=== PATIENT | female | born 1960 ===

== ENCOUNTER 2016-12-28 15:17 | Emergency (ER) | payer OTHER ==
--- NOTE | 2016-12-28 15:51 | ED PDOC ---
HPI: Back Time Seen by Provider: 12/28/16 15:48 Chief Complaint (Provider): Back pain History Per: Patient History/Exam Limitations: no limitations Onset/Duration Of Symptoms: Days (x 1 week) Current Symptoms Are (Timing): Still Present Additional Complaint(s): Cecilia is a 56 y/o female who presents to the ED complaining of right-sided back pain, ongoing for 1 week. States she was seen at [facility] [place] for the back pain and prescribed oxycodone, ibuprofen, and a muscle relaxer, without relief. When she applies pressure to her right shoulder, the pain goes away. Also states that the pain improves with a hot shower, but worsens with cold temperatures. She last took Ibuprofen at 7AM today. Patient was told she has a pinched nerve and compression in the neck based on X-Ray results. Today, she developed a headache, which is described as normal. PMD: Dr. Paris Past Medical History Reviewed: Historical Data, Nursing Documentation, Vital Signs - Medical History PMH: Arthritis, Asthma, Malignancy (lung cancer) - Surgical History Surgical History: No Surg Hx - Family History Family History: States: Unknown Family Hx - Social History Current smoker - smoking cessation education provided: No Alcohol: Social Drugs: Denies - Home Medications Home Medications: Ambulatory Orders Medication Instructions Recorded oxyCODONE/Acetaminophen [Percocet 1 ea PO Q6H PRN #15 tab 12/28/16 5/325 mg Tab] - Allergies Allergies/Adverse Reactions: Allergies Allergy/AdvReac Type Severity Reaction Status Date / Time shrimp Allergy ANAPHYLAXIS Verified 12/28/16 15:49 seafood Allergy ANAPHYLAXIS Uncoded 12/28/16 15:49 Review of Systems ROS Statement: Except As Marked, All Systems Reviewed And Found Negative Musculoskeletal: Positive for: Back Pain Neurological: Positive for: Headache Physical Exam - Reviewed Nursing Documentation Reviewed: Yes Vital Signs Reviewed: Yes - Physical Exam Appears: Positive for: Non-toxic, No Acute Distress Head Exam: Positive for: ATRAUMATIC, NORMAL INSPECTION, NORMOCEPHALIC Skin: Positive for: Normal Color, Warm, Dry Eye Exam: Positive for: EOMI, Normal appearance, PERRL Neck: Positive for: Normal Gastrointestinal/Abdominal: Positive for: Normal Exam, Soft. Negative for: Tenderness Neurologic/Psych: Positive for: Alert, Oriented Medical Decision Making Medical Decision Making: Time: 17:05 Initial Plan: --Percocet 1 tab PO --Toradol 30 mg IM Time: 17:52 --Patient reports improvement in symptoms Clinical Impression: Back pain Upon provider reevaluation patient is feeling better, medically stable, and requires no further treatment in the ED at this time. Patient will be discharged home. Counseling was provided and all questions were answered regarding diagnosis and need for follow up with PMD. There is agreement to discharge plan. Return if symptoms persist or worsen. Scribe Attestation: Documented by Carlita Lerma, acting as a scribe for Mel Shah PA-C Provider Scribe Attestation: All medical record entries made by the Scribe were at my direction and personally dictated by me. I have reviewed the chart and agree that the record accurately reflects my personal performance of the history, physical exam, medical decision making, and the department course for this patient. I have also personally directed, reviewed, and agree with the discharge instructions and disposition. Disposition - Clinical Impression Clinical Impression: Chronic back pain - Patient ED Disposition Is Patient to be Admitted: No Counseled Patient/Family Regarding: Diagnosis, Need For Followup, Rx Given - Disposition Referrals: Mika Lima III, MD [Staff Provider] - Disposition: Routine/Home Disposition Time: 18:05 Condition: GOOD Prescriptions: oxyCODONE/Acetaminophen [Percocet 5/325 mg Tab] 1 ea PO Q6H PRN #15 tab PRN Reason: Pain, Severe (8-10) Instructions: Back Pain (ED) Print Language: MALAYSIAN
[2016-12-28 15:57] VITALS: BP 128/68; RESP 18; TEMP 98.8; O2SAT 100
[2016-12-28] MEDS ORDERED: Oxycodone/Acetaminophen 5/325 mg Tab PO STA (17:05)
[2016-12-28] MEDS ORDERED: Oxycodone/Acetaminophen 5/325 mg Tab ONE (17:09)
[2016-12-28 18:16] VITALS: PULSE 78
== END 2016-12-28 18:16 | disposition home or self-care (01) ==
LOC: H.ER 15:17
DX: M54.9 Dorsalgia, unspecified (principal)
CPT/HCPCS: 96372; 99282; J1885

== ENCOUNTER 2016-12-30 00:30 | Inpatient (IN) | payer OTHER ==
[2016-12-30] MEDS ORDERED: Sodium Chloride 0.9% 1,000 ML IV STA ×2 (01:22→03:40)
[2016-12-30 01:50] LABS: BASO % 0.3 % (0.0-2.0); EOS # 0.1 K/uL (0.0-0.7); EOS % 1.8 % (0.0-4.0); HEMATOCRIT 35.3 % (34.0-47.0); LYMPH # 1.2 K/uL (1.0-4.3); LYMPH % 16.4 % (20.0-40.0); MEAN CELL VOLUME 89.4 fl (81.0-99.0); MEAN CORPUSCULAR HEMOGLOBIN 30.3 pg (27.0-31.0); MEAN CORPUSCULAR HGB CONC 33.8 g/dL (33.0-37.0); MEAN PLATELET VOLUME 7.7 fl (7.2-11.7); MONO # 0.6 K/uL (0.0-0.8); MONO % 8.7 % (0.0-10.0); NEUT # 5.4 K/uL (1.8-7.0); NEUT % 72.8 % (50.0-75.0); NRBC % 0.1 % (0.0-0.0); RED CELL DISTRIBUTION WIDTH 13.5 % (11.5-14.5); WHITE BLOOD COUNT 7.4 K/uL (4.8-10.8)
--- NOTE | 2016-12-30 01:51 | ED PDOC ---
HPI: Back Time Seen by Provider: 12/30/16 00:59 Chief Complaint (Nursing): Lower Extremity Problem/Injury Chief Complaint (Provider): Back Pain History Per: Patient History/Exam Limitations: no limitations Onset/Duration Of Symptoms: Days (1x month) Current Symptoms Are (Timing): Still Present Severity: Moderate Associated Symptoms: None Additional Complaint(s): 56 year old female with a pertinent medical history of lung cancer presents to the ED with complaints of lower back pain that radiates to both legs that started 1x month ago. She reports that she was initially evaluated at 1x month ago, and this ED 1x day ago for the same complaints. 1x day ago she was discharged with an Rx for percocet which she has been taking with no relief. She reports having abdominal pain today, but denies having nausea, vomiting, and diarrhea. Patient is unaware that she has a fever, but her vitals demonstrate that she is febrile. PMD: Cecilia Alarcon MD. Past Medical History Reviewed: Historical Data, Nursing Documentation, Vital Signs Vital Signs: Last Vital Signs Temp 101.2 F H 12/30/16 00:51 Pulse 120 H 12/30/16 00:51 Resp 20 12/30/16 00:51 BP 106/73 12/30/16 00:51 Pulse Ox 100 12/30/16 00:51 - Medical History PMH: Arthritis, Asthma, Malignancy (lung cancer) - Surgical History Surgical History: No Surg Hx - Family History Family History: States: Unknown Family Hx - Social History Current smoker - smoking cessation education provided: No Alcohol: None Drugs: Denies - Home Medications Home Medications: Ambulatory Orders Medication Instructions Recorded oxyCODONE/Acetaminophen [Percocet 1 ea PO Q6H PRN #15 tab 12/28/16 5/325 mg Tab] Fluticasone/Vilanterol [Breo 1 inh INH PRN PRN 12/30/16 Ellipta 100-25 Mcg INH] Ibuprofen [Motrin Tab] 600 mg PO PRN PRN 12/30/16 - Allergies Allergies/Adverse Reactions: Allergies Allergy/AdvReac Type Severity Reaction Status Date / Time shrimp Allergy ANAPHYLAXIS Verified 12/28/16 15:49 seafood Allergy ANAPHYLAXIS Uncoded 12/28/16 15:49 Review of Systems ROS Statement: Except As Marked, All Systems Reviewed And Found Negative Constitutional: Positive for: Fever Gastrointestinal: Positive for: Abdominal Pain. Negative for: Nausea, Vomiting , Diarrhea Musculoskeletal: Positive for: Back Pain (lower back pain radiates to both legs) Physical Exam - Reviewed Nursing Documentation Reviewed: Yes Vital Signs Reviewed: Yes - Physical Exam Appears: Positive for: Well, Non-toxic, No Acute Distress Head Exam: Positive for: ATRAUMATIC, NORMOCEPHALIC Skin: Positive for: Normal Color, Warm, Dry Neck: Positive for: Normal Cardiovascular/Chest: Positive for: Regular Rate, Rhythm Respiratory: Positive for: Normal Breath Sounds. Negative for: Respiratory Distress Gastrointestinal/Abdominal: Positive for: Normal Exam, Soft. Negative for: Tenderness Extremity: Positive for: Tenderness (leg raise test: tenderness to both legs at 30 degrees. Left leg is greater than right leg in terms of pain.) Neurologic/Psych: Positive for: Alert, Oriented (3x) - Laboratory Results Result Diagrams: 12/30/16 01:40 12/30/16 01:40 - ECG O2 Sat by Pulse Oximetry: 100 (RA) Pulse Ox Interpretation: Normal - Radiology X-Ray: Interpreted by Me, Viewed By Me X-Ray Interpretation: Other (haziness at bases of lungs bilaterally) - CT Scan/US CT lumbar spine w/o contrast Other Rad Studies (CT/US): Read By Radiologist, Radiology Report Reviewed (see MDM for findings) Medical Decision Making Medical Decision Makin:59 Initial impression: 56 year old female with back pain insetting of febrile illness. Initial plan: * CT lumbar spine w/o contrast * EKG * labs * trial IV toradol 10mg * fluids * tylenol 975mg PO * reevaluation 3:01 CT lumbar spine read and reviewed by radiologist FINDINGS: Degenerative changes with joint space narrowing and irregularity L5-S1. The vertebral bodies are well aligned. The vertebral body height is well maintained. No fractures. There is a conglomerate of ill-defined heterogeneous lytic lesions in the left iliac bone extending to the sacroiliac joint and into the sacrum. There are no sclerotic borders. The appearance is concerning for aggressive process such as neoplasm or infectious/inflammatory process. Further evaluation with bone scan may be helpful for further evaluation. There is no soft tissue component identified. No significant disc disease identified. Lytic process involving both sides of the left sacroiliac joint more notably throughout the iliac bone with an appearance concerning for aggressive process such as infection, inflammation, or neoplasm 3:30 Labs show no clinically significant abnormalities. Patient reports that she still has back pain. CT findings show that the patient has a sporadic sacral metastasis. Given patient's past medical history of lung cancer, patient will be admitted for further workup and evaluation of back pain and sacral iliactal metastasis. Discussed with : medicine on-call. 4:05 Chest XRay shows haziness at the bases of lungs bilaterally. It is unclear to the provider if it is due to patient's previous history of lung cancer. Provider will treat possible underlying pneumonia with Levaquin. Scribe Attestation: Documented by Gita Wolfe, acting as a scribe for Caesar Reynoso MD. Provider Scribe Attestation: All medical record entries made by the Scribe were at my direction and personally dictated by me. I have reviewed the chart and agree that the record accurately reflects my personal performance of the history, physical exam, medical decision making, and the department course for this patient. I have also personally directed, reviewed, and agree with the discharge instructions and disposition. Disposition - Clinical Impression Clinical Impression: Back pain, Metastasis, Febrile illness - Patient ED Disposition Is Patient to be Admitted: Yes Discussed With : Sharan Martinez - Disposition Disposition Time: 03:30 Condition: STABLE - Pt Status Changed To: Hospital Disposition Of: Inpatient - Admit Certification Admit to Inpatient:: After my assessment, the patient will require hospitalization for at least two midnights. This is because of the severity of symptoms shown, intensity of services needed, and/or the medical risk in this patient being treated as an outpatient.
[2016-12-30 02:03] LABS: RBC URINE 5 /hpf (0-3); URINE BACTERIA FEW (<OCC); URINE BILIRUBIN NEGATIVE (NEGATIVE); URINE BLOOD SMALL (NEGATIVE); URINE COLOR YELLOW (YELLOW); URINE GLUCOSE (UA) NEG (Normal); URINE KETONE TRACE mg/dL (NEGATIVE); URINE LEUKOCYTE ESTERASE NEG Leu/uL (Negative); URINE PROTEIN NEGATIVE (NEGATIVE); URINE UROBILINOGEN 0.2-1.0 mg/dL (0.2-1.0); WBC URINE 2 /hpf (0-5)
[2016-12-30 02:06] LABS: ALKALINE PHOSPHATASE 124 U/L (38-126); ALT/SGPT 41 U/L (9-52); AST/SGOT 118 U/L (14-36); BILIRUBIN,TOTAL 0.7 mg/dl (0.2-1.3); BLOOD UREA NITROGEN 10 mg/dl (7-17); CALCIUM 9.7 mg/dL (8.4-10.2); CARBON DIOXIDE 30 mmol/L (22-30); CHLORIDE 102 mmol/L (98-107); GFR AFRICAN-AMERICAN > 60; GLUCOSE,RANDOM 146 mg/dL (65-105); POTASSIUM 4.3 MMOL/L (3.6-5.0); SODIUM 140 mmol/l (132-148); TOTAL PROTEIN 7.9 G/DL (6.3-8.2)
--- NOTE | 2016-12-30 03:01 | CT ---
EXAM: CT Lumbar Spine Without Intravenous Contrast EXAM DATE/TIME: 12/30/2016 1:39 AM CLINICAL HISTORY: 56 years old, female; Pain; Low back pain; Additional info: Intractable back pain TECHNIQUE: Axial computed tomography images of the lumbar spine without intravenous contrast. All CT scans at this facility use one or more dose reduction techniques, viz.: automated exposure control; ma/kV adjustment per patient size (including targeted exams where dose is matched to indication; i.e. head); or iterative reconstruction technique. Coronal and sagittal reformatted images were created and reviewed. COMPARISON: No relevant prior studies available. FINDINGS: Degenerative changes with joint space narrowing and irregularity L5-S1. The vertebral bodies are well aligned. The vertebral body height is well maintained. No fractures. There is a conglomerate of ill-defined heterogeneous lytic lesions in the left iliac bone extending to the sacroiliac joint and into the sacrum. There are no sclerotic borders. The appearance is concerning for aggressive process such as neoplasm or infectious/inflammatory process. Further evaluation with bone scan may be helpful for further evaluation. There is no soft tissue component identified. No significant disc disease identified. IMPRESSION: Lytic process involving both sides of the left sacroiliac joint more notably throughout the iliac bone with an appearance concerning for aggressive process such as infection, inflammation, or neoplasm.
[2016-12-30] MEDS ORDERED: levoFLOXacin 500 mg in D5W 500 MG/100 ML BAG IVPB STA (04:10)
[2016-12-30] MEDS ORDERED: levoFLOXacin 500 mg in D5W 500 MG/100 ML BAG IVPB ONE (04:13)
[2016-12-30] MEDS ORDERED: Albuterol-Ipratrop 3 mg / 0.5 (3 ml) UD INH PRN (06:56)
--- NOTE | 2016-12-30 08:26 | CP.PCM.HP ---
History of Present Illness - History of Present Illness History of Present Illness: CC: Lower Back Pain History Of Present Illness: A 56 year old female with a pertinent medical history of lung cancer presents to the ED with complaints of lower back pain that radiates to both legs that started 1x month ago. She reports that she was initially evaluated at [facility] 1x month ago, and this ED 1x day ago for the same complaints. 1x day ago she was discharged with an Rx for percocet which she has been taking with no relief. She reports having abdominal pain today, but denies having nausea, vomiting, and diarrhea. Patient is unaware that she has a fever, but her vitals demonstrate that she is febrile.T max >102 , and Tachycardia 110-120. Present on Admission - Present on Admission Any Indicators Present on Admission: No Review of Systems - Review of Systems All systems: reviewed and no additional remarkable complaints except Past Patient History - Past Medical History & Family History Past Medical History?: Yes Past Family History: Reviewed and not pertinent - Past Social History Smoking Status: Never Smoked Alcohol: None Drugs: Denies - CARDIAC Hx Cardiac Disorders: No - PULMONARY Hx Asthma: Yes - NEUROLOGICAL Hx Neurological Disorder: No - HEENT Hx HEENT Problems: No - RENAL Hx Chronic Kidney Disease: No - ENDOCRINE/METABOLIC Hx Endocrine Disorders: No - HEMATOLOGICAL/ONCOLOGICAL Hx Chemotherapy: Yes (started Feb - May.) - INTEGUMENTARY Hx Dermatological Problems: No - MUSCULOSKELETAL/RHEUMATOLOGICAL Hx Arthritis: Yes - GASTROINTESTINAL Hx Gastrointestinal Disorders: No - GENITOURINARY/GYNECOLOGICAL Hx Genitourinary Disorders: No - PSYCHIATRIC Hx Psychophysiologic Disorder: No Hx Substance Use: No - SURGICAL HISTORY Hx Surgeries: Yes Hx Cholecystectomy: Yes (about 14 yrs. ago) Hx Hysterectomy: Yes (about 5 yrs. ago) Other/Comment: Breast Reduction - 17 yrs. ago - ANESTHESIA Hx Anesthesia: Yes Hx Anesthesia Reactions: No Hx Malignant Hyperthermia: No Has any member of the family had a problem w/ anesthesia?: No Meds Allergies/Adverse Reactions: Allergies Allergy/AdvReac Type Severity Reaction Status Date / Time shrimp Allergy ANAPHYLAXIS Verified 12/28/16 15:49 seafood Allergy ANAPHYLAXIS Uncoded 12/28/16 15:49 Physical Exam - Constitutional Appears: Well, No Acute Distress - Head Exam Head Exam: ATRAUMATIC, NORMAL INSPECTION, NORMOCEPHALIC - Eye Exam Eye Exam: EOMI, Normal appearance, PERRL Pupil Exam: NORMAL ACCOMODATION, PERRL - ENT Exam ENT Exam: Mucous Membranes Moist, Normal Exam - Neck Exam Neck exam: Positive for: Normal Inspection - Respiratory Exam Respiratory Exam: Clear to Auscultation Bilateral, NORMAL BREATHING PATTERN - Cardiovascular Exam Cardiovascular Exam: REGULAR RHYTHM, +S1, +S2 - GI/Abdominal Exam GI & Abdominal Exam: Normal Bowel Sounds, Soft. absent: Tenderness - Extremities Exam Extremities exam: Positive for: normal inspection - Back Exam Back exam: NORMAL INSPECTION - Neurological Exam Neurological exam: Alert, CN II-XII Intact, Normal Gait, Oriented x3, Reflexes Normal - Psychiatric Exam Psychiatric exam: Normal Affect, Normal Mood - Skin Skin Exam: Dry, Intact, Normal Color, Warm Results - Vital Signs Recent Vital Signs: Last Vital Signs Temp 100.8 F H 12/30/16 04:08 Pulse 115 H 12/30/16 04:08 Resp 18 12/30/16 04:08 BP 108/65 12/30/16 04:08 Pulse Ox 100 12/30/16 06:46 - Labs Result Diagrams: 12/30/16 01:40 12/30/16 01:40 - Imaging and Cardiology Chest x-ray Status: Report reviewed by me Additional comment: IMPRESSION: Linear airspace disease in the right perihilar region could represent atelectasis or pneumonia. Post obstructive pathology cannot be excluded. Follow- up after medical management is recommended to ensure complete resolution. CT L SPine: Status: Report reviewed by me Additional comment: IMPRESSION: Lytic process involving both sides of the left sacroiliac joint more notably throughout the iliac bone with an appearance concerning for aggressive process such as infection, inflammation, or neoplasm. Assessment & Plan (1) Sepsis Assessment and Plan: Source: Lung Vs Sacroiliac Joint Add Vancomycin and Zoyn Tylenol PRN Fever 101 or More ID Consult Will consult Ortho if Septic Arthritis is ruled in. Status: Acute Priority: High (2) Lung cancer Assessment and Plan: ?Metastasis to the Hip Vs Infectious Process Will do MRI left Pelvis Pain medicine PRN Status: Chronic (3) Obesity Status: Acute (4) Back pain Status: Acute
[2016-12-30] MEDS: Sodium Chloride 0.9% 1,000 ML IV SCH ×2 (08:32→17:01)
--- NOTE | 2016-12-30 09:04 | RAD ---
HISTORY: fever COMPARISON: No prior. FINDINGS: LUNGS: There is linear airspace disease in the right perihilar region. The left lung is clear. The lungs are well inflated. PLEURA: No significant pleural effusion identified, no pneumothorax apparent. CARDIOVASCULAR: Normal. OSSEOUS STRUCTURES: No significant abnormalities. VISUALIZED UPPER ABDOMEN: Normal. OTHER FINDINGS: None. IMPRESSION: Linear airspace disease in the right perihilar region could represent atelectasis or pneumonia. Post obstructive pathology cannot be excluded. Follow-up after medical management is recommended to ensure complete resolution.
[2016-12-30] MEDS: Enoxaparin 40 mg Syringe SC SCH (12:27)
[2016-12-30] MEDS: Fluticasone-Salmeterol 250-50mcg Diskus IH SCH ×2 (12:28→21:14)
[2016-12-30] MEDS: levoFLOXacin 500 MG TAB PO SCH (12:28)
[2016-12-30] MEDS ORDERED: Vancomycin 1 g Inj IVPB SCH (21:00)
[2016-12-31] MEDS: Sodium Chloride 0.9% 1,000 ML IV SCH ×2 (03:27→06:43)
[2016-12-31] MEDS ORDERED: cefTRIAXone (Rocephin) 2 gm Inj IVPB SCH (09:00)
[2016-12-31] MEDS: Enoxaparin 40 mg Syringe SC SCH (09:09)
[2016-12-31] MEDS: Fluticasone-Salmeterol 250-50mcg Diskus IH SCH ×2 (09:09→20:29)
[2016-12-31] MEDS: levoFLOXacin 500 MG TAB PO SCH (09:10)
--- NOTE | 2016-12-31 11:03 | CARD ---
APPROVED REPORT EKG Measurement Heart [id number] <Conclusion> Sinus tachycardia Low voltage QRS Borderline ECG
[2016-12-31 14:13] VITALS: BMI 46.8
[2016-12-31] MEDS ORDERED: Gadodiamide 287 MG/ML VIAL (15ML) IV ONE (16:07)
--- NOTE | 2016-12-31 16:52 | CP.PCM.CON ---
History of Present Illness - History of Present Illness History of Present Illness: Oncology Consult Referred by Dr. Martinez for h/o lung cancer HPI-Ms Britt is known to Dr. Lea who is treating her for stage IV lung cancer. She was admitted now with lower back pain radiating to legs and in a band like fashion. She recently went to [facility] with similar complaints and was sent home on pain medications. She was also noted to have fever of 101.2 in hospital. She denies chest pain, shortness of breath, cough or abdominal pain or altered bowel movements. She was initially diagnosed with Stage IIIB lung squamous cell carcinoma around Jan 2016. Initially treated with concurrent chemo RT using weekly Carboplatin and Taxol. Around August of this year, her scans showed progression with bone mets. Her treatment was switched to Opdivo, last dose on 12/26/16. Family and Social history reviewed. Review of Systems - Review of Systems All systems: reviewed and no additional remarkable complaints except (as in HPI) - Constitutional Constitutional: Fatigue Past Patient History - Past Medical History & Family History Past Medical History?: Yes Past Family History: Reviewed and not pertinent - Past Social History Smoking Status: Never Smoked Alcohol: None Drugs: Denies - CARDIAC Hx Cardiac Disorders: No - PULMONARY Hx Asthma: Yes - NEUROLOGICAL Hx Neurological Disorder: No - HEENT Hx HEENT Problems: No - RENAL Hx Chronic Kidney Disease: No - ENDOCRINE/METABOLIC Hx Endocrine Disorders: No - HEMATOLOGICAL/ONCOLOGICAL Hx Chemotherapy: Yes (started Feb - May.) - INTEGUMENTARY Hx Dermatological Problems: No - MUSCULOSKELETAL/RHEUMATOLOGICAL Hx Arthritis: Yes - GASTROINTESTINAL Hx Gastrointestinal Disorders: No - GENITOURINARY/GYNECOLOGICAL Hx Genitourinary Disorders: No - PSYCHIATRIC Hx Psychophysiologic Disorder: No Hx Substance Use: No - SURGICAL HISTORY Hx Surgeries: Yes Hx Cholecystectomy: Yes (about 14 yrs. ago) Hx Hysterectomy: Yes (about 5 yrs. ago) Other/Comment: Breast Reduction - 17 yrs. ago - ANESTHESIA Hx Anesthesia: Yes Hx Anesthesia Reactions: No Hx Malignant Hyperthermia: No Has any member of the family had a problem w/ anesthesia?: No Meds Allergies/Adverse Reactions: Allergies Allergy/AdvReac Type Severity Reaction Status Date / Time shrimp Allergy ANAPHYLAXIS Verified 12/28/16 15:49 seafood Allergy ANAPHYLAXIS Uncoded 12/28/16 15:49 - Medications Medications: Current Medications Acetaminophen (Tylenol 325mg Tab) 650 mg PO Q4 PRN PRN Reason: Pain, Mild (1-3) Last Admin: 12/31/16 06:31 Dose: 650 mg Albuterol/Ipratropium (Duoneb 3 Mg/0.5 Mg (3 Ml) Ud) 3 ml INH RQ6 PRN PRN Reason: Shortness of Breath Docusate Sodium (Colace) 100 mg PO BID [facility] Last Admin: 12/31/16 16:00 Dose: 100 mg Enoxaparin Sodium (Lovenox) 40 mg SC DAILY [facility] PRN Reason: Protocol Last Admin: 12/31/16 09:09 Dose: 40 mg Ceftriaxone Sodium 1 gm/ (Sodium Chloride) 100 mls @ 100 mls/hr IVPB DAILY [facility] Last Admin: 12/31/16 09:04 Dose: 100 mls/hr Vancomycin HCl 1 gm/ Sodium (Chloride) 250 mls @ 125 mls/hr IVPB Q12H [facility] Last Admin: 12/31/16 09:04 Dose: 125 mls/hr Ibuprofen (Motrin Tab) 600 mg PO Q6 PRN PRN Reason: temp >101 Last Admin: 12/31/16 02:29 Dose: 600 mg Lactulose (Enulose) 20 gm PO BID [facility] Last Admin: 12/31/16 16:00 Dose: 20 gm Levofloxacin (Levaquin) 500 mg PO DAILY [facility] Last Admin: 12/31/16 09:10 Dose: 500 mg Morphine Sulfate (Morphine) 1 mg IVP Q4 PRN PRN Reason: Pain, moderate (4-7) Morphine Sulfate (Morphine) 2 mg IVP Q4 PRN PRN Reason: Pain, severe (8-10) Last Admin: 12/31/16 15:13 Dose: 2 mg Ondansetron HCl (Zofran Inj) 4 mg IVP Q6 PRN PRN Reason: Nausea/Vomiting Last Admin: 12/31/16 15:23 Dose: 4 mg Fluticasone/Salmeterol (Advair Diskus 250/50) 1 puff IH Q12 [facility] Last Admin: 12/31/16 09:09 Dose: 1 puff Physical Exam - Head Exam Head Exam: ATRAUMATIC, NORMAL INSPECTION - Eye Exam Eye Exam: EOMI, PERRL - ENT Exam ENT Exam: Mucous Membranes Moist - Neck Exam Neck exam: Negative for: Lymphadenopathy - Respiratory Exam Respiratory Exam: Clear to Auscultation Bilateral - Cardiovascular Exam Cardiovascular Exam: REGULAR RHYTHM - GI/Abdominal Exam GI & Abdominal Exam: Normal Bowel Sounds, Soft. 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 Source of fever is unclear right now - possibly spine or lungs. Will schedule her for MRI L spine to evaluate any epidural involvement (as a cause of pain). Will hold off on starting steroids for now (as she has active fevers) Continue empiric antibiotics. F/U cultures. Labs reviewed, WBC is normal. Continue pain management and other supportive care for now She will continue to follow up with Dr. Lea at discharge. Thank you for the consult Abhishek Buck MD - Date & Time Date: 12/31/16 Time: 16:52
--- NOTE | 2016-12-31 18:03 | MRI ---
PROCEDURE: MR LUMBAR SPINE WITH AND WITHOUT CONTRAST HISTORY: h/o lung cancer, back pain COMPARISON: Comparison is made to the previous CT dated 12/30/2016 TECHNIQUE: Multiecho multiplanar sequences were performed through the lumbar spine with and without the use of intravenous contrast. 26 cc of Omniscan was given intravenously. FINDINGS: Normal lumbar lordosis. There is a straightening of the lumbar spine which could be due to muscle spasm. Mild loss of the L5 height noted could be due to severe degenerative changes at the inferior endplate. Mild diffuse heterogeneous bone marrow signal seen. There is hyperintense T1 and T2 signal at the inferior endplate of L5 suggestive of Modic type 2 degenerative changes. Conus medullaris unremarkable at the level of Paraspinal soft tissues are unremarkable. There is patchy enhancement of the lumbar spine vertebrae noted. There is partial image destructive mass lesion at the posterior aspect of the left sacroiliac joint and iliac bone demonstrates diffuse enhancement highly suspicious for metastasis. T12-L1: No disc herniation, spinal canal stenosis or neural foraminal narrowing. L1-2: No disc herniation, spinal canal stenosis or neural foraminal narrowing. L2-3: No disc herniation, spinal canal stenosis or neural foraminal narrowing. L3-4: No disc herniation, spinal canal stenosis or neural foraminal narrowing. L4-5: There is a moderate size disc herniation/ protrusion associated with posterior ligament and facet joint hypertrophy which resulting in moderate to mildly severe spinal and bilateral neural foraminal narrowing. There is moderate narrowing of the lateral recess bilaterally. L5-S1: Small disc osteophyte complex associated with posterior ligament and facet joint hypertrophy which resulting in mild spinal and neural foraminal narrowing. There is severe narrowing of the intervertebral disc space at this level associated with endplate degenerative changes. OTHER FINDINGS: None. IMPRESSION: Partially imaged enhancing destructive mass lesion at the posterior aspect of left sacroiliac joint and posterior aspect of the left iliac bone highly suspicious for metastasis given the patient's history. Straightening of the lumbar spine. Patchy enhancement of the bone marrow in the lumbar spine without evidence of focal destructive mass lesion. [id number] size disc herniation/ protrusion at L4-L5 associated with posterior ligament and facet joint hypertrophy which resulting in moderate to mildly severe spinal/thecal sac narrowing and [id number] bilateral neural foraminal stenosis. Severe degenerative changes at L5-S1 associated with moderate to severe narrowing of the disc space. Osteophyte disc bulging complex at L5-S1 which resulting in mild spinal and neural foraminal narrowing.
--- NOTE | 2016-12-31 23:11 | CP.PCM.PN ---
Subjective - Date & Time of Evaluation Date of Evaluation: 12/31/16 Time of Evaluation: 08:10 - Subjective Subjective: Spiked fever 102.3 this morning. Still c/o Lower back pain. Denies cough, or urinary symptoms. Objective - Vital Signs/Intake and Output Vital Signs (last 24 hours): Temp Pulse Resp BP Pulse Ox 99.4 F 113 H 18 112/73 100 12/31/16 16:09 12/31/16 16:09 12/31/16 16:09 12/31/16 16:09 12/31/16 16:09 - Medications Medications: Current Medications Acetaminophen (Tylenol 325mg Tab) 650 mg PO Q4 PRN PRN Reason: Pain, Mild (1-3) Last Admin: 12/31/16 06:31 Dose: 650 mg Albuterol/Ipratropium (Duoneb 3 Mg/0.5 Mg (3 Ml) Ud) 3 ml INH RQ6 PRN PRN Reason: Shortness of Breath Docusate Sodium (Colace) 100 mg PO BID [facility] Last Admin: 12/31/16 16:00 Dose: 100 mg Enoxaparin Sodium (Lovenox) 40 mg SC DAILY [facility] PRN Reason: Protocol Last Admin: 12/31/16 09:09 Dose: 40 mg Ceftriaxone Sodium 1 gm/ (Sodium Chloride) 100 mls @ 100 mls/hr IVPB DAILY [facility] Last Admin: 12/31/16 09:04 Dose: 100 mls/hr Vancomycin HCl 1 gm/ Sodium (Chloride) 250 mls @ 125 mls/hr IVPB Q12H [facility] Last Admin: 12/31/16 20:21 Dose: 125 mls/hr Ibuprofen (Motrin Tab) 600 mg PO Q6 PRN PRN Reason: temp >101 Last Admin: 12/31/16 02:29 Dose: 600 mg Lactulose (Enulose) 20 gm PO BID [facility] Last Admin: 12/31/16 16:00 Dose: 20 gm Levofloxacin (Levaquin) 500 mg PO DAILY [facility] Last Admin: 12/31/16 09:10 Dose: 500 mg Morphine Sulfate (Morphine) 1 mg IVP Q4 PRN PRN Reason: Pain, moderate (4-7) Morphine Sulfate (Morphine) 2 mg IVP Q4 PRN PRN Reason: Pain, severe (8-10) Last Admin: 12/31/16 19:46 Dose: 2 mg Ondansetron HCl (Zofran Inj) 4 mg IVP Q6 PRN PRN Reason: Nausea/Vomiting Last Admin: 12/31/16 15:23 Dose: 4 mg Fluticasone/Salmeterol (Advair Diskus 250/50) 1 puff IH Q12 [facility] Last Admin: 12/31/16 20:29 Dose: 1 puff Zolpidem Tartrate (Ambien) 5 mg PO HS PRN PRN Reason: Insomnia Last Admin: 12/31/16 22:07 Dose: 5 mg - Constitutional Appears: Well, No Acute Distress - Head Exam Head Exam: ATRAUMATIC, NORMAL INSPECTION, NORMOCEPHALIC - Eye Exam Eye Exam: EOMI, Normal appearance, PERRL Pupil Exam: NORMAL ACCOMODATION, PERRL - ENT Exam ENT Exam: Mucous Membranes Moist, Normal Exam - Neck Exam Neck Exam: Full ROM, Normal Inspection. absent: Lymphadenopathy - Respiratory Exam Respiratory Exam: Clear to Ausculation Bilateral, NORMAL BREATHING PATTERN - Cardiovascular Exam Cardiovascular Exam: REGULAR RHYTHM, +S1, +S2. absent: Murmur - GI/Abdominal Exam GI & Abdominal Exam: Soft, Normal Bowel Sounds. absent: Tenderness Additional comments: Obese - Extremities Exam Extremities Exam: Full ROM, Normal Capillary Refill, Normal Inspection. absent : Joint Swelling, Pedal Edema - Neurological Exam Neurological Exam: Alert, Awake, CN II-XII Intact, Normal Gait, Oriented x3 - Psychiatric Exam Psychiatric exam: Normal Affect, Normal Mood - Skin Skin Exam: Dry, Intact, Normal Color, Warm Assessment and Plan (1) Sepsis Assessment & Plan: Source: Lung Vs Sacroiliac Joint septic Arthritis Levaquin, Vancomycin and Zoyn Tylenol PRN Fever 101 or More ID Onboard Will consult Ortho if Septic Arthritis is ruled in. Status: Acute Priority: High (2) Lung cancer Assessment and Plan: ?Metastasis to the Hip Vs Infectious Process MRI L spine Pain medicine PRN Status: Chronic (3) Obesity Status: Acute (4) Back pain Status: Acute
[2017-01-01 07:42] LABS: BASO % 0.4 % (0.0-2.0); EOS # 0.1 K/uL (0.0-0.7); EOS % 1.5 % (0.0-4.0); HEMATOCRIT 32.9 % (34.0-47.0); LYMPH # 1.3 K/uL (1.0-4.3); LYMPH % 16.7 % (20.0-40.0); MEAN CELL VOLUME 89.5 fl (81.0-99.0); MEAN CORPUSCULAR HEMOGLOBIN 30.4 pg (27.0-31.0); MEAN CORPUSCULAR HGB CONC 33.9 g/dL (33.0-37.0); MEAN PLATELET VOLUME 7.9 fl (7.2-11.7); MONO # 0.9 K/uL (0.0-0.8); MONO % 11.8 % (0.0-10.0); NEUT # 5.2 K/uL (1.8-7.0); NEUT % 69.6 % (50.0-75.0); NRBC % 0.1 % (0.0-0.0); RED CELL DISTRIBUTION WIDTH 13.9 % (11.5-14.5); WHITE BLOOD COUNT 7.5 K/uL (4.8-10.8)
[2017-01-01 08:08] LABS: BLOOD UREA NITROGEN 5 mg/dl (7-17); CALCIUM 9.9 mg/dL (8.4-10.2); CARBON DIOXIDE 26 mmol/L (22-30); CHLORIDE 102 mmol/L (98-107); GFR AFRICAN-AMERICAN > 60; GLUCOSE,RANDOM 116 mg/dL (65-105); POTASSIUM 3.9 MMOL/L (3.6-5.0); SODIUM 140 mmol/l (132-148)
[2017-01-01] MEDS: Enoxaparin 40 mg Syringe SC SCH (09:40)
[2017-01-01] MEDS: Fluticasone-Salmeterol 250-50mcg Diskus IH SCH ×2 (09:41→20:54)
[2017-01-01] MEDS: levoFLOXacin 500 MG TAB PO SCH (09:41)
--- NOTE | 2017-01-01 11:02 | CP.PCM.PN ---
Subjective - Date & Time of Evaluation Date of Evaluation: 01/01/17 Time of Evaluation: 10:00 - Subjective Subjective: +Fever. Pain has improved. Denies fever or chills. Objective - Vital Signs/Intake and Output Vital Signs (last 24 hours): Temp Pulse Resp BP Pulse Ox 98.8 F 112 H 20 108/71 96 01/01/17 08:27 01/01/17 08:27 01/01/17 08:27 01/01/17 08:27 01/01/17 08:27 - Medications Medications: Current Medications Acetaminophen (Tylenol 325mg Tab) 650 mg PO Q4 PRN PRN Reason: Pain, Mild (1-3) Last Admin: 01/01/17 00:39 Dose: 650 mg Albuterol/Ipratropium (Duoneb 3 Mg/0.5 Mg (3 Ml) Ud) 3 ml INH RQ6 PRN PRN Reason: Shortness of Breath Docusate Sodium (Colace) 100 mg PO BID [facility] Last Admin: 01/01/17 09:39 Dose: 100 mg Enoxaparin Sodium (Lovenox) 40 mg SC DAILY [facility] PRN Reason: Protocol Last Admin: 01/01/17 09:40 Dose: 40 mg Ceftriaxone Sodium 1 gm/ (Sodium Chloride) 100 mls @ 100 mls/hr IVPB DAILY [facility] Last Admin: 01/01/17 09:34 Dose: 100 mls/hr Vancomycin HCl 1 gm/ Sodium (Chloride) 250 mls @ 125 mls/hr IVPB Q12H [facility] Last Admin: 01/01/17 09:16 Dose: 125 mls/hr Ibuprofen (Motrin Tab) 600 mg PO Q6 PRN PRN Reason: temp >101 Last Admin: 12/31/16 02:29 Dose: 600 mg Lactulose (Enulose) 20 gm PO BID [facility] Last Admin: 01/01/17 09:42 Dose: Not Given Levofloxacin (Levaquin) 500 mg PO DAILY [facility] Last Admin: 01/01/17 09:41 Dose: 500 mg Morphine Sulfate (Morphine) 1 mg IVP Q4 PRN PRN Reason: Pain, moderate (4-7) Morphine Sulfate (Morphine) 2 mg IVP Q4 PRN PRN Reason: Pain, severe (8-10) Last Admin: 01/01/17 06:06 Dose: 2 mg Ondansetron HCl (Zofran Inj) 4 mg IVP Q6 PRN PRN Reason: Nausea/Vomiting Last Admin: 12/31/16 15:23 Dose: 4 mg Fluticasone/Salmeterol (Advair Diskus 250/50) 1 puff IH Q12 [facility] Last Admin: 01/01/17 09:41 Dose: 1 puff Zolpidem Tartrate (Ambien) 5 mg PO HS PRN PRN Reason: Insomnia Last Admin: 12/31/16 22:07 Dose: 5 mg - Labs Labs: 01/01/17 07:20 01/01/17 07:20 - Constitutional Appears: Well - Head Exam Head Exam: ATRAUMATIC, NORMAL INSPECTION, NORMOCEPHALIC - Eye Exam Eye Exam: EOMI, Normal appearance, PERRL Pupil Exam: NORMAL ACCOMODATION, PERRL - ENT Exam ENT Exam: Mucous Membranes Moist, Normal Exam - Neck Exam Neck Exam: Full ROM, Normal Inspection. absent: Lymphadenopathy - Respiratory Exam Respiratory Exam: Clear to Ausculation Bilateral, NORMAL BREATHING PATTERN - Cardiovascular Exam Cardiovascular Exam: REGULAR RHYTHM, +S1, +S2. absent: Murmur - GI/Abdominal Exam GI & Abdominal Exam: Soft, Normal Bowel Sounds. absent: Tenderness - Extremities Exam Extremities Exam: Full ROM, Normal Capillary Refill, Normal Inspection. absent : Joint Swelling, Pedal Edema - Back Exam Back Exam: NORMAL INSPECTION - Neurological Exam Neurological Exam: Alert, Awake, CN II-XII Intact, Normal Gait, Oriented x3 - Psychiatric Exam Psychiatric exam: Normal Affect, Normal Mood - Skin Skin Exam: Dry, Intact, Normal Color, Warm - Additional Findings Additional findings: MRI of L- Spine: IMPRESSION : Partially imaged enhancing destructive mass lesion at the posterior aspect of left sacroiliac joint and posterior aspect of the left iliac bone highly suspicious for metastasis given the patient's history. Straightening of the lumbar spine. Patchy enhancement of the bone marrow in the lumbar spine without evidence of focal destructive mass lesion. [id number] size disc herniation/ protrusion at L4-L5 associated with posterior ligament and facet joint hypertrophy which resulting in moderate to mildly severe spinal/thecal sac narrowing and [id number] bilateral neural foraminal stenosis. Severe degenerative changes at L5-S1 associated with moderate to severe narrowing of the disc space. Osteophyte disc bulging complex at L5-S1 which resulting in mild spinal and neural foraminal narrowing. Assessment and Plan (1) Sepsis Assessment & Plan: Source: Lung Vs Sacroiliac Joint septic Arthritis Continue, Levaquin, Vancomycin and Zoyn Tylenol PRN Fever 101 or More ID Onboard Will consult Ortho if Septic Arthritis is ruled in. Status: Acute Priority: High (2) Lung cancer Assessment and Plan: Metastasis to the Hip Vs Infectious Process Pain medicine PRN Status: Chronic (3) Obesity Status: Acute (4) Back pain Status: Acute
--- NOTE | 2017-01-01 11:48 | CP.PCM.CON ---
History of Present Illness - History of Present Illness History of Present Illness: 56 yo female with stage IV lung cancer admitted now with lower back pain radiating to legs as well as fever . She recently went to [facility] with similar complaints and was sent home on pain medications. She was also noted to have fever of 101.2 in hospital. She denies chest pain, shortness of breath, cough or abdominal pain or altered bowel movements. ID consulted for possible infectious etiology cultures are pending [facility] diagnosed with Stage IIIB lung squamous cell carcinoma around Jan 2016. Initially treated chemo / RT using weekly Carboplatin and Taxol. Around August of this year, her scans showed progression with bone mets. Her treatment was switched to Opdivo, last dose on 12/26/16. will obtain venous doppler Review of Systems - Constitutional Constitutional: As Per HPI, Anorexia, Fever - EENT Eyes: absent: As Per HPI, Blind Spots, Blurred Vision, Change in Vision, Decreased Night Vision, Diplopia, Discharge, Dry Eye, Exophthalmos, Floaters, Irritation, Itchy Eyes, Loss of Peripheral Vision, Pain, Photophobia, Requires Corrective Lenses, Sees Flashes, Spots in Vision, Tunnel Vision, Other Visual Disturbances, Loss of Vision, Other Ears: absent: As Per HPI, Decreased Hearing, Ear Discharge, Ear Pain, Tinnitus, Abnormal Hearing, Disequilibrium, Dizziness, Other Nose/Mouth/Throat: absent: As Per HPI, Epistaxis, Nasal Congestion, Nasal Discharge, Nasal Obstruction, Nasal Trauma, Nose Pain, Post Nasal Drip, Sinus Pain, Sinus Pressure, Bleeding Gums, Change in Voice, Dental Pain, Dry Mouth, Dysphagia, Halitosis, Hoarsness, Lip Swelling, Mouth Lesions, Mouth Pain, Odynophagia, Sore Throat, Throat Swelling, Tongue Swelling, Facial Pain, Neck Pain, Neck Mass, Other - Breasts Breasts: absent: As Per HPI, Change in Shape, Mass, Pain, Nipple Discharge, Nipple Inversion, Skin Changes, Swelling, Other - Cardiovascular Cardiovascular: absent: As Per HPI, Acrocyanosis, Chest Pain, Chest Pain at Rest , Chest Pain with Activity, Claudication, Diaphoresis, Dyspnea, Dyspnea on Exertion, Edema, Irregular Heart Rhythm, Pain Radiating to Arm/Neck/Jaw, Leg Edema, Leg Ulcers, Lightheadedness, Orthopnea, Palpitations, Paroxysmal Nocturnal Dyspnea, Pedal Edema, Radiating Pain, Rapid Heart Rate, Slow Heart Rate, Syncope, Other - Respiratory Respiratory: absent: As Per HPI, Cough, Dyspnea, Hemoptysis, Dyspnea on Exertion , Wheezing, Snoring, Stridor, Pain on Inspiration, Chest Congestion, Excessive Mucous Production, Change in Mucous Color, Pain with Coughing, Other - Gastrointestinal Gastrointestinal: absent: As Per HPI, Abdominal Pain, Belching, Bloating, Change in Bowel Habits, Change in Stool Character, Coffee Ground Emesis, Constipation, Cramping, Diarrhea, Dyspepsia, Dysphagia, Early Satiety, Excessive Flatus, Fecal Incontinence, Heartburn, Hematemesis, Hematochezia, Loose Stools, Melena, Nausea, Odynophagia, Temesmus, Vomiting, Other - Genitourinary Genitourinary: absent: As Per HPI, Change in Urinary Stream, Difficulty Urinating, Dysuria, Flank Pain, Hematuria, Pyuria, Nocturia, Urinary Incontinence, Urinary Frequency, Urinary Hesitance, Urinary Urgency, Voiding Freq/Small Amts, Freq UTI, Hx Renal/Bladder Calculi, Hx /Renal Surgery, Bladder Distension, Other - Reproductive: Female Reproductive:Female: absent: As Per HPI, Amenorrhea, Amenorrhea/ Control, Currently Menstual, Cycle <21 Days, Cycle >35 Days, Cycle Variable, Menses 1-7 Days, Menses >/= 8 Days, Menses Variable, Cycle > 4 Weeks Between, No Menses for 6 Months, Heavy Menses, Light Menses, Normal Menses, Spotting Between Cycles , S/P Hysterectomy, Menopausal, Post Menopausal, Premenarche, Abnormal Vaginal Bleeding, Dysmenorrhea, Dyspareunia, Genital Lesions, Genital Pruritis, Pelvic Pain, Prolapse Symptoms, Sexual Dysfunction, Vaginal Discharge, Vaginal Dryness , Vaginal Odor, Vaginal Pruritis, Other - Menstruation Menstruation: absent: As Per HPI, Amenorrhea, Amenorrhea/ Control, Currently Menstual, Cycle <21 Days, Cycle >35 Days, Cycle Variable, Menses 1-7 Days, Menses >/= 8 Days, Menses Variable, Cycle > 4 Weeks Between, No Menses for 6 Months, Heavy Menses, Light Menses, Normal Menses, Spotting Between Cycles , S/P Hysterectomy, Menopausal, Post Menopausal, Premenarche, Abnormal Vaginal Bleeding, Dysmenorrhea, Other - Musculoskeletal Musculoskeletal: As Per HPI - Integumentary Integumentary: absent: As Per HPI, Acne, Alopecia, Bleeding Lesions, Change in Hair, Change in Nails, Change in Pigmentation, Changing Lesions, Dry Skin, Erythema, Furuncle, Hirsutism, Lesions, New Lesions, Non-Healing Lesions, Photosensitivity, Pruritus, Rash, Skin Pain, Skin Ulcer, Sores, Striae, Swelling , Unusual Bruising, Wounds, Jaundice, Other - Neurological Neurological: absent: As Per HPI, Abnormal Gait, Abnormal Hearing, Abnormal Movements, Abnormal Speech, Behavioral Changes, Burning Sensations, Confusion, Convulsions, Disequilibrium, Dizziness, Numbness, Focal Weakness, Frequent Falls , Headaches, Lack of Coordination, Loss of Vision, Memory Loss, Paresthesias, Radicular Pain, Restless Legs, Sensory Deficit, Syncope, Tingling, Tremor, Vertigo, Weakness, Other Visual Disturbances, Other - Psychiatric Psychiatric: absent: As Per HPI, Abnormal Sleep Pattern, Anhedonia, Anxiety, Auditory Hallucinations, Behavioral Changes, Change in Appetite, Change in Libido, Confusion, Depression, Difficulty Concentrating, Hallucinations, Homicidal Ideation, Hopelessness, Irritability, Memory Loss, Mood Swings, Panic Attacks, Paranoia, Suicidal Ideation, Visual Hallucinations, Tactile Hallucinations, Other - Endocrine Endocrine: absent: As Per HPI, Change in Body Appearance, Change in Libido, Cold Intolorance, Deepening of Voice, Excessive Sweating, Fatigue, Flushing, Heat Intolorance, Increase in Ring/Shoe/Hat Size, Palpitations, Polydipsia, Polyphagia, Polyuria, Other Past Patient History - Past Medical History & Family History Past Medical History?: Yes Past Family History: Reviewed and not pertinent - Past Social History Smoking Status: Never Smoked Alcohol: None Drugs: Denies - CARDIAC Hx Cardiac Disorders: No - PULMONARY Hx Asthma: Yes - NEUROLOGICAL Hx Neurological Disorder: No - HEENT Hx HEENT Problems: No - RENAL Hx Chronic Kidney Disease: No - ENDOCRINE/METABOLIC Hx Endocrine Disorders: No - HEMATOLOGICAL/ONCOLOGICAL Hx Chemotherapy: Yes (started Feb - May.) - INTEGUMENTARY Hx Dermatological Problems: No - MUSCULOSKELETAL/RHEUMATOLOGICAL Hx Arthritis: Yes - GASTROINTESTINAL Hx Gastrointestinal Disorders: No - GENITOURINARY/GYNECOLOGICAL Hx Genitourinary Disorders: No - PSYCHIATRIC Hx Psychophysiologic Disorder: No Hx Substance Use: No - SURGICAL HISTORY Hx Surgeries: Yes Hx Cholecystectomy: Yes (about 14 yrs. ago) Hx Hysterectomy: Yes (about 5 yrs. ago) Other/Comment: Breast Reduction - 17 yrs. ago - ANESTHESIA Hx Anesthesia: Yes Hx Anesthesia Reactions: No Hx Malignant Hyperthermia: No Has any member of the family had a problem w/ anesthesia?: No Meds Home Medications: Home Medication List Medication Instructions Recorded Confirmed Type Docusate [Colace] 100 mg PO BID cap 01/03/17 Rx Metoclopramide [Reglan] 10 mg PO Q8 PRN #15 tab 01/03/17 Rx levoFLOXacin [Levaquin] 500 mg PO DAILY #7 tab 01/03/17 Rx Allergies/Adverse Reactions: Allergies Allergy/AdvReac Type Severity Reaction Status Date / Time shrimp Allergy ANAPHYLAXIS Verified 12/28/16 15:49 seafood Allergy ANAPHYLAXIS Uncoded 12/28/16 15:49 - Medications Medications: Current Medications Acetaminophen (Tylenol 325mg Tab) 650 mg PO Q4 PRN PRN Reason: Pain, Mild (1-3) Last Admin: 01/01/17 00:39 Dose: 650 mg Albuterol/Ipratropium (Duoneb 3 Mg/0.5 Mg (3 Ml) Ud) 3 ml INH RQ6 PRN PRN Reason: Shortness of Breath Docusate Sodium (Colace) 100 mg PO BID [facility] Last Admin: 01/01/17 09:39 Dose: 100 mg Enoxaparin Sodium (Lovenox) 40 mg SC DAILY [facility] PRN Reason: Protocol Last Admin: 01/01/17 09:40 Dose: 40 mg Ceftriaxone Sodium 1 gm/ (Sodium Chloride) 100 mls @ 100 mls/hr IVPB DAILY [facility] Last Admin: 01/01/17 09:34 Dose: 100 mls/hr Vancomycin HCl 1 gm/ Sodium (Chloride) 250 mls @ 125 mls/hr IVPB Q12H [facility] Last Admin: 01/01/17 09:16 Dose: 125 mls/hr Ibuprofen (Motrin Tab) 600 mg PO Q6 PRN PRN Reason: temp >101 Last Admin: 12/31/16 02:29 Dose: 600 mg Lactulose (Enulose) 20 gm PO BID [facility] Last Admin: 01/01/17 09:42 Dose: Not Given Levofloxacin (Levaquin) 500 mg PO DAILY [facility] Last Admin: 01/01/17 09:41 Dose: 500 mg Morphine Sulfate (Morphine) 1 mg IVP Q4 PRN PRN Reason: Pain, moderate (4-7) Morphine Sulfate (Morphine) 2 mg IVP Q4 PRN PRN Reason: Pain, severe (8-10) Last Admin: 01/01/17 06:06 Dose: 2 mg Ondansetron HCl (Zofran Inj) 4 mg IVP Q6 PRN PRN Reason: Nausea/Vomiting Last Admin: 12/31/16 15:23 Dose: 4 mg Fluticasone/Salmeterol (Advair Diskus 250/50) 1 puff IH Q12 [facility] Last Admin: 01/01/17 09:41 Dose: 1 puff Zolpidem Tartrate (Ambien) 5 mg PO HS PRN PRN Reason: Insomnia Last Admin: 12/31/16 22:07 Dose: 5 mg Physical Exam - Constitutional Appears: Non-toxic, Cachectic, Chronically Ill - Head Exam Head Exam: ATRAUMATIC, NORMAL INSPECTION, NORMOCEPHALIC - Eye Exam Eye Exam: EOMI, PERRL. absent: Scleral icterus - ENT Exam ENT Exam: Mucous Membranes Dry, Normal External Ear Exam - Neck Exam Neck exam: Negative for: Lymphadenopathy, Thyromegaly - Respiratory Exam Respiratory Exam: Decreased Breath Sounds, Rhonchi - Cardiovascular Exam Cardiovascular Exam: REGULAR RHYTHM, +S1, +S2 - GI/Abdominal Exam GI & Abdominal Exam: Diminished Bowel Sounds, Soft. absent: Tenderness - Rectal Exam Rectal Exam: Deferred - Exam Exam: NORMAL INSPECTION - Extremities Exam Extremities exam: Positive for: pedal pulses present. Negative for: calf tenderness, pedal edema, tenderness - Back Exam Back exam: absent: CVA tenderness (L), CVA tenderness (R) - Neurological Exam Neurological exam: Alert, CN II-XII Intact, Oriented x3, Reflexes Normal - Psychiatric Exam Psychiatric exam: Normal Mood - Skin Skin Exam: Dry, Intact Results - Vital Signs Recent Vital Signs: Last Vital Signs Temp 98.8 F 01/01/17 08:27 Pulse 112 H 01/01/17 08:27 Resp 20 01/01/17 08:27 BP 108/71 01/01/17 08:27 Pulse Ox 96 01/01/17 08:27 - Labs Result Diagrams: 01/01/17 07:20 01/01/17 07:20 Labs: Laboratory Results - last 24 hr 01/01/17 01/01/17 07:20 07:20 WBC 7.5 RBC 3.68 L Hgb 11.2 L Hct 32.9 L MCV 89.5 MCH 30.4 MCHC 33.9 RDW 13.9 Plt Count 191 MPV 7.9 Neut % (Auto) 69.6 Lymph % (Auto) 16.7 L [place] % (Auto) 11.8 H Eos % (Auto) 1.5 Baso % (Auto) 0.4 Neut # 5.2 Lymph # 1.3 [place] # 0.9 H Eos # 0.1 Baso # 0.0 ESR 106 H Sodium 140 Potassium 3.9 Chloride 102 Carbon Dioxide 26 Anion Gap 15 BUN 5 L Creatinine 0.6 L Est GFR ( Amer) > 60 Est GFR (Non-Af Amer) > 60 Random Glucose 116 H Calcium 9.9 Assessment & Plan (1) Back pain Status: Acute (2) Chronic back pain Status: Acute (3) Febrile illness Status: Acute (4) Metastasis Status: Acute (5) Obesity Status: Acute (6) Lung cancer Status: Chronic - Assessment and Plan (Free Text) Assessment: await cuultures cont iv antibiotics
--- NOTE | 2017-01-01 13:49 | US ---
PROCEDURE: Bilateral lower extremity venous duplex Doppler. HISTORY: r/o dvt fever COMPARISON: None available. TECHNIQUE: Bilateral common femoral, superficial femoral, popliteal and posterior tibial veins were evaluated. Flow was assessed with color Doppler, compressibility, assessment of phasic flow and augmentation response. FINDINGS: COMMON FEMORAL VEIN: Right CFV: Unremarkable. Left CFV: Unremarkable. SUPERFICIAL FEMORAL VEIN: Right SFV: Unremarkable. Left SFV: Unremarkable. POPLITEAL VEIN: Right Popliteal: Unremarkable. Left Popliteal: Unremarkable. POSTERIOR TIBIAL VEIN: Right PTV: Unremarkable. Left PTV: Unremarkable. OTHER FINDINGS: None. IMPRESSION: No evidence of deep venous thrombosis in the right or left lower extremity. .
[2017-01-01] MEDS: guaiFENesin 100 mg/5 ml Syrup UD PO PRN (16:51)
[2017-01-02] MEDS: Fluticasone-Salmeterol 250-50mcg Diskus IH SCH ×3 (08:45→20:02)
[2017-01-02] MEDS: Enoxaparin 40 mg Syringe SC SCH (08:45)
[2017-01-02] MEDS: levoFLOXacin 500 MG TAB PO SCH (08:45)
--- NOTE | 2017-01-02 12:47 | CP.PCM.PN ---
Subjective - Date & Time of Evaluation Date of Evaluation: 01/02/17 Time of Evaluation: 08:00 - Subjective Subjective: dvt neg iv rx in progresss c/o pain Objective - Vital Signs/Intake and Output Vital Signs (last 24 hours): Temp Pulse Resp BP Pulse Ox 99.7 F H 78 20 115/64 99 01/02/17 00:52 01/02/17 00:52 01/02/17 00:52 01/02/17 00:52 01/02/17 00:52 - Medications Medications: Current Medications Acetaminophen (Tylenol 325mg Tab) 650 mg PO Q4 PRN PRN Reason: Pain, Mild (1-3) Last Admin: 01/01/17 00:39 Dose: 650 mg Albuterol/Ipratropium (Duoneb 3 Mg/0.5 Mg (3 Ml) Ud) 3 ml INH RQ6 PRN PRN Reason: Shortness of Breath Docusate Sodium (Colace) 100 mg PO BID [facility] Last Admin: 01/02/17 08:45 Dose: 100 mg Enoxaparin Sodium (Lovenox) 40 mg SC DAILY [facility] PRN Reason: Protocol Last Admin: 01/02/17 08:45 Dose: 40 mg Guaifenesin (Robitussin) 100 mg PO Q6 PRN PRN Reason: Cough Last Admin: 01/01/17 16:51 Dose: 100 mg Ceftriaxone Sodium 1 gm/ (Sodium Chloride) 100 mls @ 100 mls/hr IVPB DAILY [facility] Last Admin: 01/02/17 08:46 Dose: 100 mls/hr Vancomycin HCl 1 gm/ Sodium (Chloride) 250 mls @ 125 mls/hr IVPB Q12H [facility] Last Admin: 01/02/17 09:12 Dose: 125 mls/hr Ibuprofen (Motrin Tab) 600 mg PO Q6 PRN PRN Reason: temp >101 Last Admin: 12/31/16 02:29 Dose: 600 mg Lactulose (Enulose) 20 gm PO BID [facility] Last Admin: 01/02/17 09:56 Dose: Not Given Levofloxacin (Levaquin) 500 mg PO DAILY [facility] Last Admin: 01/02/17 08:45 Dose: 500 mg Morphine Sulfate (Morphine) 1 mg IVP Q4 PRN PRN Reason: Pain, moderate (4-7) Morphine Sulfate (Morphine) 2 mg IVP Q4 PRN PRN Reason: Pain, severe (8-10) Last Admin: 01/01/17 06:06 Dose: 2 mg Ondansetron HCl (Zofran Inj) 4 mg IVP Q6 PRN PRN Reason: Nausea/Vomiting Last Admin: 01/02/17 00:17 Dose: 4 mg Fluticasone/Salmeterol (Advair Diskus 250/50) 1 puff IH Q12 [facility] Last Admin: 01/02/17 09:56 Dose: Not Given Zolpidem Tartrate (Ambien) 5 mg PO HS PRN PRN Reason: Insomnia Last Admin: 01/01/17 23:22 Dose: 5 mg - Labs Labs: 01/01/17 07:20 01/01/17 07:20 - Constitutional Appears: Non-toxic, Chronically Ill - Head Exam Head Exam: NORMOCEPHALIC - Eye Exam Eye Exam: PERRL - ENT Exam ENT Exam: Mucous Membranes Dry - Neck Exam Neck Exam: absent: Lymphadenopathy - Respiratory Exam Respiratory Exam: Clear to Ausculation Bilateral - Cardiovascular Exam Cardiovascular Exam: REGULAR RHYTHM - GI/Abdominal Exam GI & Abdominal Exam: Distended, Soft - Rectal Exam Rectal Exam: Deferred Assessment and Plan - Assessment and Plan (Free Text) Plan: r/o occult infection consider ortho eval iv antibiotics
--- NOTE | 2017-01-02 19:42 | CP.PCM.PN ---
Subjective - Date & Time of Evaluation Date of Evaluation: 01/02/17 Time of Evaluation: 18:45 Objective - Vital Signs/Intake and Output Vital Signs (last 24 hours): Temp Pulse Resp BP Pulse Ox 98.7 F 114 H 20 125/68 98 01/02/17 16:49 01/02/17 16:49 01/02/17 16:49 01/02/17 16:49 01/02/17 16:49 - Medications Medications: Current Medications Acetaminophen (Tylenol 325mg Tab) 650 mg PO Q4 PRN PRN Reason: Pain, Mild (1-3) Last Admin: 01/01/17 00:39 Dose: 650 mg Albuterol/Ipratropium (Duoneb 3 Mg/0.5 Mg (3 Ml) Ud) 3 ml INH RQ6 PRN PRN Reason: Shortness of Breath Docusate Sodium (Colace) 100 mg PO BID [facility] Last Admin: 01/02/17 16:18 Dose: 100 mg Enoxaparin Sodium (Lovenox) 40 mg SC DAILY [facility] PRN Reason: Protocol Last Admin: 01/02/17 08:45 Dose: 40 mg Guaifenesin (Robitussin) 100 mg PO Q6 PRN PRN Reason: Cough Last Admin: 01/01/17 16:51 Dose: 100 mg Ceftriaxone Sodium 1 gm/ (Sodium Chloride) 100 mls @ 100 mls/hr IVPB DAILY [facility] Last Admin: 01/02/17 08:46 Dose: 100 mls/hr Vancomycin HCl 1 gm/ Sodium (Chloride) 250 mls @ 125 mls/hr IVPB Q12H [facility] Last Admin: 01/02/17 09:12 Dose: 125 mls/hr Ibuprofen (Motrin Tab) 600 mg PO Q6 PRN PRN Reason: temp >101 Last Admin: 12/31/16 02:29 Dose: 600 mg Lactulose (Enulose) 20 gm PO BID [facility] Last Admin: 01/02/17 16:18 Dose: 20 gm Levofloxacin (Levaquin) 500 mg PO DAILY [facility] Last Admin: 01/02/17 08:45 Dose: 500 mg Morphine Sulfate (Morphine) 1 mg IVP Q4 PRN PRN Reason: Pain, moderate (4-7) Morphine Sulfate (Morphine) 2 mg IVP Q4 PRN PRN Reason: Pain, severe (8-10) Last Admin: 01/02/17 13:52 Dose: 2 mg Ondansetron HCl (Zofran Inj) 4 mg IVP Q6 PRN PRN Reason: Nausea/Vomiting Last Admin: 01/02/17 00:17 Dose: 4 mg Fluticasone/Salmeterol (Advair Diskus 250/50) 1 puff IH Q12 [facility] Last Admin: 01/02/17 09:56 Dose: Not Given Zolpidem Tartrate (Ambien) 5 mg PO HS PRN PRN Reason: Insomnia Last Admin: 01/01/17 23:22 Dose: 5 mg - Labs Labs: 01/01/17 07:20 01/01/17 07:20 Assessment and Plan (1) Sepsis Status: Acute
--- NOTE | 2017-01-02 22:46 | CT ---
EXAM: CT Chest Without Intravenous Contrast CLINICAL HISTORY: 56 years old, female; Condition or disease; Lung condition and disease; Cancer of the lung; Right; Unspecified; Patient HX: Lung ca. ; Additional info: R/O obstructing pna TECHNIQUE: Axial computed tomography images of the chest without intravenous contrast. All CT scans at this facility use one or more dose reduction techniques, viz.: automated exposure control; ma/kV adjustment per patient size (including targeted exams where dose is matched to indication; i.e. head); or iterative reconstruction technique. Coronal and sagittal reformatted images were created and reviewed. COMPARISON: CR - CHEST PORTABLE 12/30/2016 3:45:59 AM FINDINGS: Lungs: There is masslike opacity in the region of the right hilum with some associated narrowing of the proximal right middle lobe and right lower lobe bronchi. The opacity extends into the right lower lobe in the peribronchial regions. This may represent the known lung cancer. It is difficult to exclude superimposed pneumonia. Please correlate clinically and if indicated followup can be obtained. Separate from this there is a nodule in the right middle lobe which measures 8 x 8 mm on series 2, image 54. A smaller nodule more inferiorly in the right middle lobe measures 5 mm on series 2, image 66. These may represent metastases. Pleural or subpleural nodule at the right base posteriorly measures 10 mm on series 2, image 95. 7 mm nodule in the left lower lobe on series 2, image 68. These may represent additional metastases. Pleural space: No significant pleural effusion or pneumothorax identified. Heart: Unremarkable. No cardiomegaly. No significant pericardial effusion. Mediastinum: Hilar regions are limited without IV contrast. Thyroid: Thyroid is normal in size and position. Bones/joints: No displaced fractures identified in the thorax. There are mild degenerative changes present. No dislocation. Soft tissues: Unremarkable. Vasculature: Unremarkable. No thoracic aortic aneurysm. Lymph nodes: There is no axillary adenopathy. No mediastinal adenopathy. IMPRESSION: 1. There is masslike opacity in the region of the right hilum with some associated narrowing of the proximal right middle lobe and right lower lobe bronchi. The opacity extends into the right lower lobe in the peribronchial regions. This may represent the known lung cancer. It is difficult to exclude superimposed pneumonia. Please correlate clinically and if indicated followup can be obtained. 2. Separate from this there is a nodule in the right middle lobe which measures 8 x 8 mm on series 2, image 54. A smaller nodule more inferiorly in the right middle lobe measures 5 mm on series 2, image 66. These may represent metastases. 3. Pleural or subpleural nodule at the right base posteriorly measures 10 mm on series 2, image 95. 7 mm nodule in the left lower lobe on series 2, image 68. These may represent additional metastases. 4. Additional incidental and/or chronic findings as described.
[2017-01-02] MEDS: guaiFENesin 100 mg/5 ml Syrup UD PO PRN (23:11)
[2017-01-03 08:16] VITALS: RESP 20
[2017-01-03] MEDS: Fluticasone-Salmeterol 250-50mcg Diskus IH SCH (08:44)
[2017-01-03] MEDS: levoFLOXacin 500 MG TAB PO SCH (08:45)
[2017-01-03] MEDS: Enoxaparin 40 mg Syringe SC SCH (08:46)
[2017-01-03 16:22] VITALS: BP 124/76; PULSE 121; TEMP 99; O2SAT 99
--- NOTE | 2017-01-03 23:44 | CP.PCM.DIS ---
Provider - Provider Date of Admission: 12/30/16 03:16 Attending physician: Sharan Martinez MD Time Spent in preparation of Discharge (in minutes): 25 Diagnosis - Discharge Diagnosis (1) Sepsis Status: Acute Priority: High Hospital Course - Lab Results Lab Results: Most Recent Lab Values WBC 7.5 K/uL (4.8-10.8) 01/01/17 07:20 RBC 3.68 Mil/uL (3.80-5.20) L 01/01/17 07:20 Hgb 11.2 g/dL (12.0-16.0) L 01/01/17 07:20 Hct 32.9 % (34.0-47.0) L 01/01/17 07:20 MCV 89.5 fl (81.0-99.0) 01/01/17 07:20 MCH 30.4 pg (27.0-31.0) 01/01/17 07:20 MCHC 33.9 g/dL (33.0-37.0) 01/01/17 07:20 RDW 13.9 % (11.5-14.5) 01/01/17 07:20 Plt Count 191 K/uL (130-400) 01/01/17 07:20 MPV 7.9 fl (7.2-11.7) 01/01/17 07:20 Neut % (Auto) 69.6 % (50.0-75.0) 01/01/17 07:20 Lymph % (Auto) 16.7 % (20.0-40.0) L 01/01/17 07:20 Stanley % (Auto) 11.8 % (0.0-10.0) H 01/01/17 07:20 Eos % (Auto) 1.5 % (0.0-4.0) 01/01/17 07:20 Baso % (Auto) 0.4 % (0.0-2.0) 01/01/17 07:20 Neut # 5.2 K/uL (1.8-7.0) 01/01/17 07:20 Lymph # 1.3 K/uL (1.0-4.3) 01/01/17 07:20 Stanley # 0.9 K/uL (0.0-0.8) H 01/01/17 07:20 Eos # 0.1 K/uL (0.0-0.7) 01/01/17 07:20 Baso # 0.0 K/uL (0.0-0.2) 01/01/17 07:20 ESR 106 mm/hr (0-30) H 01/01/17 07:20 Sodium 140 mmol/l (132-148) 01/01/17 07:20 Potassium 3.9 MMOL/L (3.6-5.0) 01/01/17 07:20 Chloride 102 mmol/L (98-107) 01/01/17 07:20 Carbon Dioxide 26 mmol/L (22-30) 01/01/17 07:20 Anion Gap 15 (10-20) 01/01/17 07:20 BUN 5 mg/dl (7-17) L 01/01/17 07:20 Creatinine 0.6 mg/dL (0.7-1.2) L 01/01/17 07:20 Est GFR ( Amer) > 60 01/01/17 07:20 Est GFR (Non-Af Amer) > 60 01/01/17 07:20 Random Glucose 116 mg/dL (65-105) H 01/01/17 07:20 Lactic Acid 1.2 MMOL/L (0.7-2.1) 12/30/16 01:40 Calcium 9.9 mg/dL (8.4-10.2) 01/01/17 07:20 Total Bilirubin 0.7 mg/dl (0.2-1.3) 12/30/16 01:40 AST 118 U/L (14-36) H 12/30/16 01:40 ALT 41 U/L (9-52) 12/30/16 01:40 Alkaline Phosphatase 124 U/L (38-126) 12/30/16 01:40 Total Protein 7.9 G/DL (6.3-8.2) 12/30/16 01:40 Albumin 3.9 g/dL (3.5-5.0) 12/30/16 01:40 Globulin 3.9 gm/dL (2.2-3.9) 12/30/16 01:40 Albumin/Globulin Ratio 1.0 (1.0-2.1) 12/30/16 01:40 Urine Color Yellow (YELLOW) 12/30/16 01:40 Urine Clarity Cloudy (Clear) 12/30/16 01:40 Urine pH 5.0 (5.0-8.0) 12/30/16 01:40 Ur Specific Allison 1.019 (1.003-1.030) 12/30/16 01:40 Urine Protein Negative mg/dL (NEGATIVE) 12/30/16 01:40 Urine Glucose (UA) Neg mg/dL (Normal) 12/30/16 01:40 Urine Ketones Trace mg/dL (NEGATIVE) 12/30/16 01:40 Urine Blood Small (NEGATIVE) 12/30/16 01:40 Urine Nitrate Negative (NEGATIVE) 12/30/16 01:40 Urine Bilirubin Negative (NEGATIVE) 12/30/16 01:40 Urine Urobilinogen 0.2-1.0 mg/dL (0.2-1.0) 12/30/16 01:40 Ur Leukocyte Esterase Neg Celine/uL (Negative) 12/30/16 01:40 Urine RBC (Auto) 5 /hpf (0-3) H 12/30/16 01:40 Urine Microscopic WBC 2 /hpf (0-5) 12/30/16 01:40 Ur Squamous Epith Cells 2 /hpf (0-5) 12/30/16 01:40 Urine Bacteria Few (<OCC) H 12/30/16 01:40 Vancomycin Trough 6.3 ug/mL (5.0-10.0) 01/02/17 08:45 Influenza Typ A,B (EIA) Negative for flu a/b (NEGATIVE) 12/30/16 01:53 Discharge Exam - Head Exam Head Exam: NORMOCEPHALIC Discharge Plan - Discharge Medications Prescriptions: levoFLOXacin [Levaquin] 500 mg PO DAILY #7 tab Metoclopramide [Reglan] 10 mg PO Q8 PRN #15 tab PRN Reason: Nausea/Vomiting - Follow Up Plan Condition: STABLE Disposition: HOME/ ROUTINE Instructions: Metoclopramide (By mouth), Back Pain (GEN) Additional Instructions: Complete all antibiotics. F/u with Dr. Martinez on Saturday01/16/17 Referrals: Sharan Martinez MD [Staff Provider] -
== END 2017-01-03 20:55 | disposition home or self-care (01) | DRG 901 ==
LOC: H.ER 00:30 → H.ERHOLD 03:16 → H.MEDSURG1 04:44
PROVIDERS: ADMIT Internal Medicine; ATTEND Internal Medicine
DX: A41.9 Sepsis, unspecified organism (principal); C79.51 Secondary malignant neoplasm of bone; C34.90 Malignant neoplasm of unspecified part of unspecified bronchus or lung; E66.9 Obesity, unspecified; Z68.42 Body mass index [BMI] 45.0-49.9, adult; J45.909 Unspecified asthma, uncomplicated; Z91.013 Allergy to seafood; G89.29 Other chronic pain; M19.90 Unspecified osteoarthritis, unspecified site

== ENCOUNTER 2017-01-08 19:10 | Emergency (ER) | payer OTHER ==
[2017-01-08 19:10] VITALS: BMI 46.8
[2017-01-08 20:05] LABS: BASO % 0.3 % (0.0-2.0); EOS # 0.2 K/uL (0.0-0.7); EOS % 3.4 % (0.0-4.0); HEMATOCRIT 36.3 % (34.0-47.0); LYMPH # 1.6 K/uL (1.0-4.3); LYMPH % 27.2 % (20.0-40.0); MEAN CELL VOLUME 89.4 fl (81.0-99.0); MEAN CORPUSCULAR HEMOGLOBIN 29.7 pg (27.0-31.0); MEAN CORPUSCULAR HGB CONC 33.2 g/dL (33.0-37.0); MEAN PLATELET VOLUME 7.3 fl (7.2-11.7); MONO # 0.5 K/uL (0.0-0.8); MONO % 8.7 % (0.0-10.0); NEUT # 3.5 K/uL (1.8-7.0); NEUT % 60.4 % (50.0-75.0); NRBC % 0.2 % (0.0-0.0); RED CELL DISTRIBUTION WIDTH 13.9 % (11.5-14.5); WHITE BLOOD COUNT 5.8 K/uL (4.8-10.8)
[2017-01-08 20:12] LABS: ALCOHOL SERUM < 10 mg/dl (0-10); BLOOD UREA NITROGEN 14 mg/dl (7-17); CALCIUM 10.2 mg/dL (8.4-10.2); CARBON DIOXIDE 25 mmol/L (22-30); CHLORIDE 105 mmol/L (98-107); GFR AFRICAN-AMERICAN > 60; GLUCOSE,RANDOM 145 mg/dL (65-105); POTASSIUM 4.1 MMOL/L (3.6-5.0); SODIUM 141 mmol/l (132-148)
[2017-01-08 20:30] LABS: PARTIAL THROMBOPLASTIN TIME 27.9 Seconds (25.6-37.1)
--- NOTE | 2017-01-08 21:09 | ED PDOC ---
HPI: General Adult Time Seen by Provider: 01/08/17 19:22 Chief Complaint (Nursing): Weakness/Neurological Deficit Chief Complaint (Provider): Weakness/Neurological Deficit History Per: Patient, Family (Son) Onset/Duration Of Symptoms: Days (x4 days) Current Symptoms Are (Timing): Still Present Additional Complaint(s): 56 y/o female with a past medical history of lung cancer with previous radiation and chemotherapy, metastatic of the sacral bone, hypertension, and hypercholesterolemia who presents to the emergency department with a complaint of a right-sided headache, right-sided facial discomfort, and slurred speech since 01/05/2017. Associated withy right leg pain and right lower back pain x1 week. Denies other deficits with walking, numbness or weakness to the extremities, chest pain, and abdominal pain. Of note, patient was admitted in our facility under the care of Dr. Martinez last week for back pain. Patient had CAT Scan and MRI completed of lumbar spine. PMD: From [facility] Past Medical History Reviewed: Historical Data, Nursing Documentation, Vital Signs Vital Signs: Last Vital Signs Temp 98.2 F 01/08/17 22:49 Pulse 107 H 01/08/17 22:49 Resp 18 01/08/17 22:49 BP 109/88 01/08/17 22:49 Pulse Ox 100 01/08/17 22:49 - Medical History PMH: Arthritis, Asthma, Malignancy (lung cancer), Pneumonia Denies: Chronic Kidney Disease - Surgical History Surgical History: Cholecystectomy (about 14 yrs. ago) - Family History Family History: States: Unknown Family Hx - Social History Current smoker - smoking cessation education provided: No Alcohol: Social Drugs: Denies - Home Medications Home Medications: Ambulatory Orders Medication Instructions Recorded oxyCODONE/Acetaminophen [Percocet 1 ea PO Q6H PRN #15 tab 12/28/16 5/325 mg Tab] Fluticasone/Vilanterol [Breo 1 inh INH PRN PRN 12/30/16 Ellipta 100-25 Mcg INH] Ibuprofen [Motrin Tab] 600 mg PO PRN PRN 12/30/16 Docusate [Colace] 100 mg PO BID cap 01/03/17 Metoclopramide [Reglan] 10 mg PO Q8 PRN #15 tab 01/03/17 levoFLOXacin [Levaquin] 500 mg PO DAILY #7 tab 01/03/17 Gabapentin [Neurontin] 300 mg PO HS #30 cap 01/08/17 Miconazole 2% Vaginal [Monistat 7 1 applic VG DAILY #7 tube 01/08/17 Vaginal Cream] - Allergies Allergies/Adverse Reactions: Allergies Allergy/AdvReac Type Severity Reaction Status Date / Time shrimp Allergy ANAPHYLAXIS Verified 12/28/16 15:49 seafood Allergy ANAPHYLAXIS Uncoded 12/28/16 15:49 Review of Systems ROS Statement: Except As Marked, All Systems Reviewed And Found Negative Cardiovascular: Negative for: Chest Pain Gastrointestinal: Negative for: Abdominal Pain Musculoskeletal: Positive for: Back Pain (Right lower back pain), Leg Pain ( Right) Neurological: Positive for: Change in Speech (Slurred), Headache (Right-sided with facial discomfort). Negative for: Weakness, Numbness Physical Exam - Reviewed Nursing Documentation Reviewed: Yes Vital Signs Reviewed: Yes - Physical Exam Appears: Positive for: Well (Comfortable), Non-toxic, No Acute Distress. Negative for: Uncomfortable Head Exam: Positive for: ATRAUMATIC, NORMAL INSPECTION, NORMOCEPHALIC Skin: Positive for: Normal Color, Warm, Dry Eye Exam: Positive for: Normal appearance, EOMI Neck: Positive for: Normal, Supple Cardiovascular/Chest: Positive for: Regular Rate, Rhythm. Negative for: Murmur Respiratory: Positive for: Normal Breath Sounds. Negative for: Accessory Muscle Use, Wheezing, Respiratory Distress Gastrointestinal/Abdominal: Positive for: Normal Exam, Soft. Negative for: Tenderness Back: Positive for: Normal Inspection. Negative for: L CVA Tenderness, R CVA Tenderness Extremity: Positive for: Normal ROM. Negative for: Pedal Edema Neurologic/Psych: Positive for: Alert, network admin II-XII (intact), Oriented (x3), Gait (Steady), Other (Facial nerves intact). Negative for: Motor/Sensory Deficits, Facial Droop - Laboratory Results Result Diagrams: 01/08/17 19:50 01/08/17 19:50 - ECG O2 Sat by Pulse Oximetry: 99 (RA) Pulse Ox Interpretation: Normal Medical Decision Making Medical Decision Making: Time: 19:37 Initial impression: Headache with slurred speech. Differential include brain mass, stroke, and other conditions Initial plan: --Head CT --Alcohol Serum --BMP --Drug Screen, Urine --PTT & Prothrombin --Reevaluation Completed on 12/30/2016 --Lumbar Spine CT FINDINGS: Degenerative changes with joint space narrowing and irregularity L5-S1. The vertebral bodies are well aligned. The vertebral body height is well maintained. No fractures. There is a conglomerate of ill-defined heterogeneous lytic lesions in the left iliac bone extending to the sacroiliac joint and into the sacrum. There are no sclerotic borders. The appearance is concerning for aggressive process such as neoplasm or infectious/inflammatory process. Further evaluation with bone scan may be helpful for further evaluation. There is no soft tissue component identified. No significant disc disease identified. IMPRESSION: Lytic process involving both sides of the left sacroiliac joint more notably throughout the iliac bone with an appearance concerning for aggressive process such as infection, inflammation, or neoplasm. Completed on 12/31/2016 --Lumbar Spine MRI FINDINGS: Normal lumbar lordosis. There is a straightening of the lumbar spine which could be due to muscle spasm. Mild loss of the L5 height noted could be due to severe degenerative changes at the inferior endplate. Mild diffuse heterogeneous bone marrow signal seen. There is hyperintense T1 and T2 signal at the inferior endplate of L5 suggestive of Modic type 2 degenerative changes. Conus medullaris unremarkable at the level of Paraspinal soft tissues are unremarkable. There is patchy enhancement of the lumbar spine vertebrae noted. There is partial image destructive mass lesion at the posterior aspect of the left sacroiliac joint and iliac bone demonstrates diffuse enhancement highly suspicious for metastasis. T12-L1: No disc herniation, spinal canal stenosis or neural foraminal narrowing. L1-2: No disc herniation, spinal canal stenosis or neural foraminal narrowing. L2-3: No disc herniation, spinal canal stenosis or neural foraminal narrowing. L3-4: No disc herniation, spinal canal stenosis or neural foraminal narrowing. L4-5: There is a moderate size disc herniation/ protrusion associated with posterior ligament and facet joint hypertrophy which resulting in moderate to mildly severe spinal and bilateral neural foraminal narrowing. There is moderate narrowing of the lateral recess bilaterally. L5-S1: Small disc osteophyte complex associated with posterior ligament and facet joint hypertrophy which resulting in mild spinal and neural foraminal narrowing. There is severe narrowing of the intervertebral disc space at this level associated with endplate degenerative changes. OTHER FINDINGS: None. IMPRESSION: Partially imaged enhancing destructive mass lesion at the posterior aspect of left sacroiliac joint and posterior aspect of the left iliac bone highly suspicious for metastasis given the patient's history. Straightening of the lumbar spine. Patchy enhancement of the bone marrow in the lumbar spine without evidence of focal destructive mass lesion. [id number] size disc herniation/ protrusion at L4-L5 associated with posterior ligament and facet joint hypertrophy which resulting in moderate to mildly severe spinal/thecal sac narrowing and [id number] bilateral neural foraminal stenosis. Severe degenerative changes at L5-S1 associated with moderate to severe narrowing of the disc space. Osteophyte disc bulging complex at L5-S1 which resulting in mild spinal and neural foraminal narrowing. Time: 22:03 --Head CT FINDINGS: BRAIN: No significant acute abnormality identified. Diffuse, mild, age-related cortical atrophy and ventriculomegaly. No acute hemorrhage seen within the brain. No acute extra- axial fluid collections visualized. No evidence of significant mass effect within the brain. VENTRICLES: See above. BONES/JOINTS: No acute fractures or other acute bony abnormality noted. SOFT TISSUES: No acute abnormality of the visualized soft tissues is seen. SINUSES: Visualized paranasal sinuses appear clear. MASTOID AIR CELLS: Mastoid air cells appear clear. IMPRESSION: - No acute findings seen within the brain. - See above for remaining findings. Time: 22:09 --Pending Consult with Neurologist Dr. Curiel on-call Time: 22:25 --Discussed case with Neurologist Dr. Curiel who said pt can be discharged with gabapentin 2HS and to follow up with him. Time: 2227 --Tylenol 650 mg PO Upon provider reevaluation patient is feeling better, is medically stable, and requires no further treatment in the ED at this time. Patient will be discharged home with Rx for Gabapentin 300 mg . Counseling was provided and all questions were answered regarding diagnosis and need for follow up with Dr. William Curiel MD. There is agreement to discharge plan. Return if symptoms persist or worsen. Clinical Impression: Scribe Attestation: Documented by Jenniffer Askew, acting as a scribe for Shan Hanks MD. Provider Scribe Attestation: All medical record entries made by the Scribe were at my direction and personally dictated by me. I have reviewed the chart and agree that the record accurately reflects my personal performance of the history, physical exam, medical decision making, and the department course for this patient. I have also personally directed, reviewed, and agree with the discharge instructions and disposition. Disposition - Clinical Impression Clinical Impression: Headache, Neuralgia - Patient ED Disposition Is Patient to be Admitted: No Discussed With : William Curiel Doctor Will See Patient In The: Office Counseled Patient/Family Regarding: Studies Performed, Diagnosis, Need For Followup - Disposition Referrals: William Curiel MD [Staff Provider] - Disposition: Routine/Home Disposition Time: 22:29 Condition: GOOD Additional Instructions: Take tylenol or motrin for pain. Follow up with neurologist within 2-3 days. Prescriptions: Gabapentin [Neurontin] 300 mg PO HS #30 cap Miconazole 2% Vaginal [Monistat 7 Vaginal Cream] 1 applic VG DAILY #7 tube Instructions: General Headache (ED) Forms: [facility] ([place] Islander) Print Language: CYPRIOT
--- NOTE | 2017-01-08 22:03 | CT ---
EXAM: CT Head Without Intravenous Contrast EXAM DATE/TIME: 01/08/2017 7:37 PM CLINICAL HISTORY: 56 years old, female; Pain; Headache; Headache not specified; Additional info: Headache HX of lung ca TECHNIQUE: Axial computed tomography images of the head/brain without intravenous contrast. All CT scans at this facility use one or more dose reduction techniques, viz.: automated exposure control; ma/kV adjustment per patient size (including targeted exams where dose is matched to indication; i.e. head); or iterative reconstruction technique. Coronal and sagittal reformatted images were created and reviewed. COMPARISON: No relevant prior studies available. FINDINGS: BRAIN: No significant acute abnormality identified. Diffuse, mild, age-related cortical atrophy and ventriculomegaly. No acute hemorrhage seen within the brain. No acute extra-axial fluid collections visualized. No evidence of significant mass effect within the brain. VENTRICLES: See above. BONES/JOINTS: No acute fractures or other acute bony abnormality noted. SOFT TISSUES: No acute abnormality of the visualized soft tissues is seen. SINUSES: Visualized paranasal sinuses appear clear. MASTOID AIR CELLS: Mastoid air cells appear clear. IMPRESSION: - No acute findings seen within the brain. - See above for remaining findings.
[2017-01-08 22:56] VITALS: BP 109/88; PULSE 107; RESP 18; TEMP 98.2
[2017-01-09 19:40] VITALS: O2SAT 99
== END 2017-01-08 23:00 | disposition home or self-care (01) ==
LOC: H.ER 19:10
DX: R51 Headache (principal); M79.2 Neuralgia and neuritis, unspecified; Z85.118 Personal history of other malignant neoplasm of bronchus and lung; Z92.21 Personal history of antineoplastic chemotherapy; Z92.3 Personal history of irradiation; M48.06 Spinal stenosis, lumbar region; I10 Essential (primary) hypertension; J45.909 Unspecified asthma, uncomplicated

== ENCOUNTER 2017-01-23 01:47 | Emergency (ER) | payer OTHER ==
[2017-01-23 01:53] VITALS: BMI 46.3
[2017-01-23] MEDS ORDERED: Sodium Chloride 0.9% 1,000 ML IV STA (02:29)
--- NOTE | 2017-01-23 02:43 | ED PDOC ---
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 Patient states symptoms have been progressing over the last few days, but worsened as of 21:00 last night. Patient states headache starts in front of head, travels down right side of neck, shoulder, to hip, and right leg. Patient states now pain has spread to left lower extremity as well. Patient states she has had these symptoms before, and was prescribed Gabapentin for neuralgia without improvement. Patient states she had MRI here which showed possible cancer of pelvis, but states her oncologist told her it doesn't look like it is, will know for sure at her scheduled PET scan next week. Patient notes dizziness to be new as of yesterday. She describes dizziness as "everything around me spinning", with associated nausea. States dizziness worse with movement, improved with rest. Denies fever, vision changes, extremity numbness/weakness, chest pain, shortness of breath, palpitations, abdominal pain. Patient currently on chemotherapy treatment every other week; being followed by Dr. Lea. Past Medical History Reviewed: Historical Data, Nursing Documentation, Vital Signs Vital Signs: Last Vital Signs Temp 98.7 F 01/23/17 01:53 Pulse 135 H 01/23/17 01:53 Resp 16 01/23/17 01:53 BP 96/77 L 01/23/17 01:53 Pulse Ox 100 01/23/17 01:53 - Medical History PMH: Arthritis, Asthma, Malignancy (lung cancer), Pneumonia Denies: Chronic Kidney Disease - Surgical History Surgical History: Cholecystectomy (about 14 yrs. ago) - Family History Family History: States: Unknown Family Hx - Home Medications Home Medications: Ambulatory Orders Medication Instructions Recorded oxyCODONE/Acetaminophen [Percocet 1 ea PO Q6H PRN #15 tab 12/28/16 5/325 mg Tab] Fluticasone/Vilanterol [Breo 1 inh INH PRN PRN 12/30/16 Ellipta 100-25 Mcg INH] Ibuprofen [Motrin Tab] 600 mg PO PRN PRN 12/30/16 Docusate [Colace] 100 mg PO BID cap 01/03/17 Metoclopramide [Reglan] 10 mg PO Q8 PRN #15 tab 01/03/17 levoFLOXacin [Levaquin] 500 mg PO DAILY #7 tab 01/03/17 Gabapentin [Neurontin] 300 mg PO HS #30 cap 01/08/17 Miconazole 2% Vaginal [Monistat 7 1 applic VG DAILY #7 tube 01/08/17 Vaginal Cream] Meclizine [Meclizine*] 25 mg PO TID PRN #21 tab 01/23/17 - Allergies Allergies/Adverse Reactions: Allergies Allergy/AdvReac Type Severity Reaction Status Date / Time shrimp Allergy ANAPHYLAXIS Verified 01/23/17 01:53 seafood Allergy ANAPHYLAXIS Uncoded 01/23/17 01:53 Review of Systems ROS Statement: Except As Marked, All Systems Reviewed And Found Negative Musculoskeletal: Positive for: Leg Pain Neurological: Positive for: Headache, Dizziness Physical Exam - Reviewed Nursing Documentation Reviewed: Yes Vital Signs Reviewed: Yes - Physical Exam Appears: Positive for: Well, Non-toxic, No Acute Distress Head Exam: Positive for: ATRAUMATIC, NORMAL INSPECTION, NORMOCEPHALIC Skin: Positive for: Normal Color Eye Exam: Positive for: Normal appearance, EOMI, PERRL ENT: Positive for: Normal ENT Inspection Neck: Positive for: Normal Cardiovascular/Chest: Positive for: Tachycardia Respiratory: Positive for: Normal Breath Sounds Gastrointestinal/Abdominal: Positive for: Normal Exam Back: Positive for: Normal Inspection Extremity: Positive for: Normal ROM Neurologic/Psych: Positive for: Alert, Oriented. Negative for: Motor/Sensory Deficits - Laboratory Results Result Diagrams: 01/23/17 03:00 01/23/17 03:00 - ECG ECG: Positive for: Viewed By Me (reviewed by ED attending) ECG Rhythm: Positive for: Sinus Tachycardia O2 Sat by Pulse Oximetry: 100 - Progress ED Course And Treament: labs, ekg, ct head, urine, IV fluids, PO tylenol, PO meclizine EXAM: CT Head Without Intravenous Contrast CLINICAL HISTORY: 56 years old, female; Pain; Headache; Tension; Additional info: Headache, dizziness TECHNIQUE: Axial computed tomography images of the head/brain without intravenous contrast. All CT scans at this facility use one or more dose reduction techniques, viz.: automated exposure control; ma/kV adjustment per patient size (including targeted exams where dose is matched to indication; i.e. head); or iterative reconstruction technique. Coronal and sagittal reformatted images were created and reviewed. COMPARISON: CT - HEAD W/O CONTRAST 01/08/2017 7:58:27 PM FINDINGS: Brain: No acute intracranial hemorrhage. No significant white matter disease. No edema. Ventricles: No significant ventriculomegaly. Bones: No acute displaced fracture. Sinuses: Unremarkable as visualized. No acute sinusitis. Mastoid air cells: Unremarkable as visualized. No mastoid effusion. IMPRESSION: No acute intracranial hemorrhage, or suspicious mass effect. On re-eval, patient states dizziness improved; still notes mild headache. IV toradol ordered. HR improved (patient with history of HR above 100's on previous visits) Case discussed with ED attending Dr. Reynoso; agrees with plan to discharge and follow up outpatient. Patient advised to follow up for PET scan/oncologist as scheduled. Follow up neurology. Rx meclizine provided. Return to ED for worsening/concerning symptoms. Disposition - Clinical Impression Clinical Impression: Headache, Dizziness - Patient ED Disposition Is Patient to be Admitted: No Counseled Patient/Family Regarding: Studies Performed, Diagnosis, Need For Followup, Rx Given - Disposition Referrals: Pee Arthur MD [Medical Doctor] - Disposition: Routine/Home Disposition Time: 06:00 Condition: IMPROVED Prescriptions: Meclizine [Meclizine*] 25 mg PO TID PRN #21 tab PRN Reason: Dizziness Instructions: Acute Headache (ED), Dizziness (ED) Print Language: [place]
[2017-01-23 02:45] VITALS: TEMP 98.4
[2017-01-23 04:26] LABS: BASO % 0.2 % (0.0-2.0); EOS # 0.1 K/uL (0.0-0.7); EOS % 1.6 % (0.0-4.0); HEMATOCRIT 33.8 % (34.0-47.0); LYMPH # 1.6 K/uL (1.0-4.3); LYMPH % 20.2 % (20.0-40.0); MEAN CELL VOLUME 87.7 fl (81.0-99.0); MEAN CORPUSCULAR HEMOGLOBIN 29.4 pg (27.0-31.0); MEAN CORPUSCULAR HGB CONC 33.5 g/dL (33.0-37.0); MEAN PLATELET VOLUME 8.2 fl (7.2-11.7); MONO # 0.5 K/uL (0.0-0.8); MONO % 6.6 % (0.0-10.0); NEUT # 5.6 K/uL (1.8-7.0); NEUT % 71.4 % (50.0-75.0); NRBC % 0.1 % (0.0-0.0); RED CELL DISTRIBUTION WIDTH 13.9 % (11.5-14.5); WHITE BLOOD COUNT 7.9 K/uL (4.8-10.8)
[2017-01-23 04:32] LABS: ALKALINE PHOSPHATASE 112 U/L (38-126); ALT/SGPT 38 U/L (9-52); AST/SGOT 104 U/L (14-36); BILIRUBIN,TOTAL 0.6 mg/dl (0.2-1.3); BLOOD UREA NITROGEN 12 mg/dl (7-17); CALCIUM 10.2 mg/dL (8.4-10.2); CARBON DIOXIDE 26 mmol/L (22-30); CHLORIDE 101 mmol/L (98-107); GFR AFRICAN-AMERICAN > 60; GLUCOSE,RANDOM 154 mg/dL (65-105); POTASSIUM 3.8 MMOL/L (3.6-5.0); SODIUM 138 mmol/l (132-148); TOTAL PROTEIN 7.9 G/DL (6.3-8.2)
--- NOTE | 2017-01-23 04:35 | CT ---
EXAM: CT Head Without Intravenous Contrast CLINICAL HISTORY: 56 years old, female; Pain; Headache; Tension; Additional info: Headache, dizziness TECHNIQUE: Axial computed tomography images of the head/brain without intravenous contrast. All CT scans at this facility use one or more dose reduction techniques, viz.: automated exposure control; ma/kV adjustment per patient size (including targeted exams where dose is matched to indication; i.e. head); or iterative reconstruction technique. Coronal and sagittal reformatted images were created and reviewed. COMPARISON: CT - HEAD W/O CONTRAST 01/08/2017 7:58:27 PM FINDINGS: Brain: No acute intracranial hemorrhage. No significant white matter disease. No edema. Ventricles: No significant ventriculomegaly. Bones: No acute displaced fracture. Sinuses: Unremarkable as visualized. No acute sinusitis. Mastoid air cells: Unremarkable as visualized. No mastoid effusion. IMPRESSION: No acute intracranial hemorrhage, or suspicious mass effect.
[2017-01-23 04:57] LABS: RBC URINE 3 /hpf (0-3); URINE BACTERIA FEW (<OCC); URINE BILIRUBIN NEGATIVE (NEGATIVE); URINE BLOOD NEGATIVE (NEGATIVE); URINE COLOR YELLOW (YELLOW); URINE GLUCOSE (UA) NEG (Normal); URINE KETONE NEGATIVE (NEGATIVE); URINE LEUKOCYTE ESTERASE NEG Leu/uL (Negative); URINE PROTEIN NEGATIVE (NEGATIVE); URINE UROBILINOGEN 0.2-1.0 mg/dL (0.2-1.0); WBC URINE 2 /hpf (0-5)
[2017-01-23 08:01] VITALS: RESP 18
[2017-01-23 09:23] VITALS: BP 120/74; PULSE 108
--- NOTE | 2017-01-23 12:39 | CARD ---
APPROVED REPORT EKG Measurement Heart [id number] <Conclusion> Sinus tachycardia Otherwise normal ECG
[2017-01-24 05:13] VITALS: O2SAT 100
== END 2017-01-23 09:25 | disposition home or self-care (01) ==
LOC: H.ER 01:47
DX: R51 Headache (principal); R42 Dizziness and giddiness; Z85.118 Personal history of other malignant neoplasm of bronchus and lung
CPT/HCPCS: 70450; 80053; 81003; 82948; 84484; 85025; 93005; 96374; 99285; J1885; J2405; J7040